=== PATIENT | female | born 2000 | race African-American/Black ===

== ENCOUNTER 2022-08-26 17:13 | Emergency (ER) | payer MEDICAID, OTHER ==
[~2022-08-26] VITALS: Ht 160 cm; Wt 54.0 kg
[2022-08-26 17:13] VITALS: BP 138/86
[~2022-08-26 17:13] MED LIST: IBUP-1780 PO
[2022-08-26 18:09] LABS: BASOPHILS % (AUTO) 0 % (0-10); EOSINOPHILS % (AUTO) 0 % (0-10); HEMATOCRIT 39 % (35-52); HEMOGLOBIN 13.5 g/dL (11.5-16.0); LYMPHOCYTES % (AUTO) 15 % (12-44); MEAN CORPUSCULAR HEMOGLOBIN 31 pg (25-34); MEAN CORPUSCULAR HGB CONC 35 g/dL (32-36); MEAN CORPUSCULAR VOLUME 89 fL (80-99); MEAN PLATELET VOLUME 8.9 fL (9.0-12.2); MONOCYTES # (AUTO) 0.9 10^3/uL (0.0-1.0); MONOCYTES % (AUTO) 7 % (0-12); NEUTROPHILS # (AUTO) 10.4 10^3/uL (1.8-7.8); NEUTROPHILS % (AUTO) 77 % (42-75); PLATELET COUNT 404 10^3/uL (130-400); WHITE BLOOD COUNT 13.4 10^3/uL (4.3-11.0)
--- NOTE | 2022-08-26 18:15 | ED Psychosocial ---
General Chief Complaint: Psych/Social Disorder Stated Complaint: AMS History of Present Illness Date Seen by Provider: August 26, 2022 Time Seen by Provider: 17:22 Initial Comments Alba Bhatt presents via [facility] from [facility] for concerns that someone would hurt her or she would hurt herself. She will not state her name and says she goes by many names. She reports her birthday is in [birth year] but unsure if born in 1998, 1999, or 2000. She reports auditory hallucinations. She is drawing and writing on paper with locations noted in many states. She reports voices telling her to machine milker traffic, to kill herself. She has various scratches to her arms and legs, reports cutting in the past. No active bleeding or acute injuries. EMS contacted [address] [place] [address] to have her screened and they refused. Timing/Duration: getting worse Associated Symptoms: suicidal ideation (KRISTIAN AGARWAL) Allergies and Home Medications Allergies Coded Allergies: No Allergy Information Available (Unverified , 08/26/22) patient is not answering all questions Patient Home Medication List Home Medication List Reviewed: Yes (KRISTIAN AGARWAL) Review of Systems Constitutional: no symptoms reported, see HPI : No (neg Urine HCG) Psychiatric/Neurological: See HPI, Anxiety, Depressed, Emotional Problems (KRISTIAN GARG) All Other Systems Reviewed Negative Unless Noted: Yes (KRISTIAN AGARWAL) Past Suturff-Rnzewo-Bfkamk Hx Family Medical History Reviewed Nursing Family Hx (KRISTIAN AGARWAL) Physical Exam Vital Signs - First Documented 08/26/22 17:13 Temp 36.8 Pulse 145 Resp 16 B/P (MAP) 138/86 (103) Pulse Ox 98 O2 Delivery Room Air (LOR,KAPIL K DO) Capillary Refill : (KRISTIAN AGARWAL) Height, Weight, BMI Height: '" Weight: lbs. oz. kg; BMI Method: General Appearance: WD/WN, mild distress HEENT: PERRL/EOMI, normal ENT inspection, TMs normal, pharynx normal Neck: non-tender, full range of motion, supple, normal inspection Respiratory: chest non-tender, lungs clear, normal breath sounds Cardiovascular: normal peripheral pulses, regular rate, rhythm Gastrointestinal: normal bowel sounds, non tender, soft Extremities: normal range of motion, non-tender, no pedal edema, no calf tenderness Neurologic/Psychiatric: no motor/sensory deficits, alert; No normal mood/affect, No oriented x 3 Appearance/Memory: appropriate appearance, denies illness, disheveled, impaired insight, impaired recent memory, impaired remote memory Behavior/Eye Contact: cooperative (agreeable to have exam and labs. ), refused to answer (name or ) Thoughts/Hallucinations: auditory hallucinations, flight of ideas Skin: normal color, warm/dry, other (healed scratches and cuts to legs and arms. No acute skin injuries or skin changes compatible to IV drug injections. ) (KRISTIAN AGARWAL) Progress/Results/Core Measures Results/Orders Lab Results Laboratory Tests Test 08/26/22 18:00 08/26/22 18:55 Range/Units White Blood Count 13.4 H 4.3-11.0 10^3/uL Red Blood Count 4.36 3.80-5.11 10^6/uL Hemoglobin 13.5 11.5-16.0 g/dL Hematocrit 39 35-52 % Mean Corpuscular Volume 89 80-99 fL Mean Corpuscular Hemoglobin 31 25-34 pg Mean Corpuscular Hemoglobin Concent 35 32-36 g/dL Red Cell Distribution Width 13.2 10.0-14.5 % Platelet Count 404 H 130-400 10^3/uL Mean Platelet Volume 8.9 L 9.0-12.2 fL Immature Granulocyte % (Auto) 0 % Neutrophils (%) (Auto) 77 H 42-75 % Lymphocytes (%) (Auto) 15 12-44 % Monocytes (%) (Auto) 7 0-12 % Eosinophils (%) (Auto) 0 0-10 % Basophils (%) (Auto) 0 0-10 % Neutrophils # (Auto) 10.4 H 1.8-7.8 10^3/uL Lymphocytes # (Auto) 2.0 1.0-4.0 10^3/uL Monocytes # (Auto) 0.9 0.0-1.0 10^3/uL Eosinophils # (Auto) 0.0 0.0-0.3 10^3/uL Basophils # (Auto) 0.0 0.0-0.1 10^3/uL Immature Granulocyte # (Auto) 0.1 0.0-0.1 10^3/uL Sodium Level 140 135-145 MMOL/L Potassium Level 3.7 3.6-5.0 MMOL/L Chloride Level 106 98-107 MMOL/L Carbon Dioxide Level 17 L 21-32 MMOL/L Anion Gap 17 H 5-14 MMOL/L Blood Urea Nitrogen 8 7-18 MG/DL Creatinine 0.89 0.60-1.30 MG/DL Estimat Glomerular Filtration Rate 50 BUN/Creatinine Ratio 9 Glucose Level 93 70-105 MG/DL Calcium Level 10.2 H 8.5-10.1 MG/DL Corrected Calcium 8.5-10.1 MG/DL Total Bilirubin 0.8 0.1-1.0 MG/DL Aspartate Amino Transf (AST/SGOT) 32 5-34 U/L Alanine Aminotransferase (ALT/SGPT) 19 0-55 U/L Alkaline Phosphatase 72 40-136 U/L Total Protein 8.7 H 6.4-8.2 GM/DL Albumin 4.9 H 3.2-4.5 GM/DL TSH [place] Testing 0.56 0.35-4.94 UIU/ML Salicylates Level < 5.0 L 5.0-20.0 MG/DL Acetaminophen Level < 10 L 10-30 UG/ML Serum Alcohol < 10 <10 MG/DL Urine Color YELLOW Urine Clarity CLEAR Urine pH 7.5 5-9 Urine Specific [place] 1.020 1.016-1.022 Urine Protein 2+ H NEGATIVE Urine Glucose (UA) NEGATIVE NEGATIVE Urine Ketones 2+ H NEGATIVE Urine Nitrite NEGATIVE NEGATIVE Urine Bilirubin 1+ H NEGATIVE Urine Urobilinogen 1.0 < = 1.0 MG/DL Urine Leukocyte Esterase NEGATIVE NEGATIVE Urine RBC (Auto) NEGATIVE NEGATIVE Urine RBC RARE /HPF Urine WBC 0-2 /HPF Urine Squamous Epithelial Cells 2-5 /HPF Urine Crystals NONE /LPF Urine Bacteria LARGE H /HPF Urine Casts PRESENT /LPF Urine Hyaline Casts 5-10 H /LPF Urine Mucus LARGE H /LPF Urine Culture Indicated YES Urine Opiates Screen NEGATIVE NEGATIVE Urine Oxycodone Screen NEGATIVE NEGATIVE Urine Methadone Screen NEGATIVE NEGATIVE Urine Propoxyphene Screen NEGATIVE NEGATIVE Urine Barbiturates Screen NEGATIVE NEGATIVE Ur Tricyclic Antidepressants Screen NEGATIVE NEGATIVE Urine Phencyclidine Screen NEGATIVE NEGATIVE Urine Amphetamines Screen POSITIVE H NEGATIVE Urine Methamphetamines Screen POSITIVE H NEGATIVE Urine Benzodiazepines Screen NEGATIVE NEGATIVE Urine Cocaine Screen NEGATIVE NEGATIVE Urine Cannabinoids Screen POSITIVE H NEGATIVE (LOR,KAPIL K DO) My Orders Orders - LORKAPIL K DO Nitrofurantoin Capsule,Macro (Macrobid C (08/27/22 09:00) (KAPIL MADRID DO) Medications Given in ED Current Medications Medications Dose Ordered Sig/Haresh Route Start Time Stop Time Status Last Admin Dose Admin Ondansetron HCl 4 mg PRN PRN SL 08/26/22 22:30 08/26/22 22:57 4 MG (KAPIL MADRID DO) Vital Signs/I&O (KAPIL MADRID DO) Progress Progress Note : Time: 17:22 Progress Note Patient assessed and agreeable to remain in the emergency department for a sc reening and labs. She continues to refuse to state her name or date of . She denies having any family or friends to call for assistance. No past medical history could be obtained. She continues to report auditory hallucinations. Taking water, no complaints. 1814 labs completed, awaiting urine. Patient drinking water. 1899 UA obtained, urine positive for marijuana and feta means and methamphetamines. [facility] Sitter provided to stay with patient. 1929 patient continuously wants to wash her arms and legs in the sink, states she is filthy. Provided bath basin and towels. Patient has been drinking water and pedialyte. She is refusing IV. 1999 patient found sitting on counter with legs in sink, bathing. Sitter in room. Notified sitter that patient cannot sit on counter. She was assisted to chair and instructed that she can't be on counters, she could fall or be injured. 2014 patient provided meal tray. No return call from [facility]. 2099 [facility] called, unsure if they can screen her since they don't know her name. They will discuss with supervisor cloth winding. 2129 patient playing hang man with sitter, wrote [employer] on the board. States that is her name, but she is unsure of her birthdate. Attempted to locate a [place] and that name is not in [employer]. Law Enforcement contacted and they do not have any matches for [employer]. 2199 Continue to await [facility] for mental health screen. Report provided to Dr. Madrid, to assume care of patient. (KRISTIAN AGARWAL) Progress Note : Progress Note 2199--ASSUMED CARE OF PT AT END OF SHIFT. MENTAL HEALTH SCREEN IS STILL PENDING AT THIS TIME. PT IS RELATIVELY CALM AND COOPERATIVE AT THIS TIME. ELICIATER ( RN ) IS IN ROOM WITH PT. ( SECURE ROOM IS CURRENTLY IN USE BY ANOTHER MENTAL HEALTH PATIENT ) MIDNIGHT--MENTAL HEALTH SCREEN IS BEING DONE 0024--PT HAS HAD A MENTAL HEALTH SCREEN, AND HAVE BEEN INFORMED THAT THEY WILL BE DOING AN INVOLUNTARY ADMIT TO [facility]. PT IS GOING THROUGH CABINETS, MESSING WITH EQUIPMENT IN ROOM, REPEATEDLY USING CLEANING WIPES, REPEATEDLY TAKING OUT GLOVES, ETC. 0115--PT REQUESTING "MOTRIN 800 MG" FOR BACK PAIN--I ADVISED PT THAT I COULD NOT ORDER ANY MEDICATIONS WITHOUT HER REAL NAME AND DATE, AND PT IMMEDIATELY STATES "I'LL WAIT THEN" AND REFUSES TO PROVIDE ANY OF HER INFORMATION. 0130--PT IS RAPIDLY ESCALATING, BECOMING VERBALLY AND PHYSICALLY AGGRESSIVE, LEAVING THE ROOM, WANTING TO LEAVE. [employer] WERE CALLED FOR ASSISTANCE. SHE CONTINUES TO REFUSE TO GIVE HER NAME OR DATE OF . 0140--[employer] ARE HERE. 0245--PT HAS NOW GIVEN A NAME AND DATE OF TO POLICE, BUT THERE IS NO PHOTO VERIFICATION THAT THE PATIENT IS ACTUALLY THIS PERSON. [employer] HAVE NOW LEFT, AND PT IS NO LONGER AGGRESSIVE OR TRYING TO LEAVE. 0400--PT IS NOW SLEEPING 0600--CARE TURNED OVER TO DR. BYRD, PENDING [facility] AD[facility]. PT IS SLEEPING AT THIS TIME. (KAPIL MADRID DO) Progress Note : Time: 12:22 Progress Note 08/27/22 Notified by Alexandria Ramos of [facility] that patient has been accepted to [facility] for tomorrow (TRACEY BYRD MD) Initial ECG Impression Date: August 26, 2022 Initial ECG Impression Time: 18:43 Initial ECG Rate: 115 Initial ECG Rhythm: S.Tach Initial ECG Intervals: Normal Initial ECG Intervals [place] 159, QRS D 74, QT 320, QTc 388. Margie P71, R57, T50. Initial ECG Impression: Normal Initial ECG Comparisson: No Previous ECG Available (KRISTIAN AGARWAL) Transfer of Care Time: 22:00 Care transferred to: Dr. Madrid (KRISTIAN AGARWAL) Departure Impression Primary Impression: Auditory hallucinations Additional Impressions: Suicidal ideations Drug abuse, amphetamine type Drug abuse, marijuana Disposition: 65 XFER TO PSYCH HOSP/UNIT Condition: Stable Transfer Transfer Reason: Exceeds level of care Time Spoke to Accepting Phy: 12:25 Transfer Progress Notes discussed with [facility] by RAUL Pearl for [employer]ONTLOAD DRIVER Transfer Facility: [facility] Method of Transfer: Private Vehicle (TRACEY BYRD MD) Departure-Patient Inst. Referrals: NO,LOCAL PHYSICIAN (PCP/Family) Primary Care Physician KRISTIAN AGARWAL August 26, 2022 18:15 KAPIL MADRID DO August 26, 2022 22:30 TRACEY BYRD MD August 27, 2022 12:26
[2022-08-26 18:25] LABS: ALBUMIN 4.9 GM/DL (3.2-4.5); CHLORIDE 106 MMOL/L (98-107); POTASSIUM 3.7 MMOL/L (3.6-5.0); SODIUM 140 MMOL/L (135-145)
[2022-08-26 18:26] LABS: CALCIUM 10.2 MG/DL (8.5-10.1)
[2022-08-26 18:27] LABS: GLUCOSE 93 MG/DL (70-105); TOTAL PROTEIN 8.7 GM/DL (6.4-8.2)
[2022-08-26 18:28] LABS: CARBON DIOXIDE 17 MMOL/L (21-32)
[2022-08-26 18:29] LABS: BILIRUBIN,TOTAL 0.8 MG/DL (0.1-1.0)
[2022-08-26 18:31] LABS: ALKALINE PHOSPHATASE 72 U/L (40-136); CREATININE SERUM 0.89 MG/DL (0.60-1.30); GFR ESTIMATED 50
[2022-08-26 18:33] LABS: ACETAMINOPHEN < 10 UG/ML (10-30); BUN/CREATININE RATIO 9
[2022-08-26 18:34] LABS: ALANINE AMINOTRANSFERASE 19 U/L (0-55); SALICYLATE < 5.0 MG/DL (5.0-20.0)
[2022-08-26 19:03] LABS: CLARITY,URINE CLEAR; COLOR,URINE YELLOW; GLUCOSE, URINE (UA) NEGATIVE (NEGATIVE); KETONES,URINE 2+ (NEGATIVE); LEUKOCYTE ESTERASE ,URINE NEGATIVE (NEGATIVE); NITRITE,URINE NEGATIVE (NEGATIVE); PH,URINE 7.5 (5-9); PROTEIN,URINE 2+ (NEGATIVE)
[2022-08-26 19:15] LABS: RBC,URINE RARE /HPF
[2022-08-26 19:16] LABS: BACTERIA,URINE LARGE /HPF; WBC,URINE 0-2 /HPF
[2022-08-26 19:17] LABS: AMPHETAMINE SCREEN, URINE POSITIVE (NEGATIVE); BARBITURATE SCREEN URINE NEGATIVE (NEGATIVE); BENZODIAZEPINES SCREEN URINE NEGATIVE (NEGATIVE); CANNABINOID SCREEN, URINE POSITIVE (NEGATIVE); COCAINE SCREEN URINE NEGATIVE (NEGATIVE); METHADONE STAT NEGATIVE (NEGATIVE); OPIATE SCREEN URINE NEGATIVE (NEGATIVE); OXYCODONE STAT NEGATIVE (NEGATIVE); PROPOXYPHENE STAT NEGATIVE (NEGATIVE); TRICYCLIC ANTIDEPRESSANTS SCRE NEGATIVE (NEGATIVE)
[2022-08-26] MEDS ORDERED: NITROFURANTOIN 100 MG (MACROBID) CAPSULE PO STA (21:07)
[2022-08-26 21:32] LABS: BILIRUBIN,URINE 1+ (NEGATIVE)
[2022-08-26] MEDS ORDERED: ONDANSETRON 4 MG (ZOFRAN) ORAL DISSOLVE TAB SL PRN (22:30)
[2022-08-27] MEDS ORDERED: NITROFURANTOIN 100 MG (MACROBID) CAPSULE PO SCH (09:00)
[2022-08-27] MEDS ORDERED: OLANZapine 5 MG ODT (ZyPREXA ZYDIS) PO ONE (12:00)
== END 2022-08-27 14:59 ==
LOC: ER 17:18 → EDBD 17:18 → ER 08-27 14:59
DX: R44.0 Auditory hallucinations (principal); R45.851 Suicidal ideations; F15.10 Other stimulant abuse, uncomplicated; F12.10 Cannabis abuse, uncomplicated
CPT/HCPCS: 80053; 80306; 81000; 84443; 84703; 85025; 87088; 99283; G0480 ×3; 36415; 80320; 80329; 93005

== ENCOUNTER 2023-02-24 09:03 | Emergency (ER) | payer MEDICAID ==
[~2023-02-24] VITALS: Ht 160 cm; Wt 63.5 kg
[~2023-02-24 09:03] MED LIST changes: +ONDA4TAB11 SL
[2023-02-24] MEDS ORDERED: OLANZapine 5 MG ODT TABLET SL ONE (09:15)
[2023-02-24 09:25] LABS: BILIRUBIN,URINE NEGATIVE (NEGATIVE); CLARITY,URINE CLEAR; COLOR,URINE YELLOW; GLUCOSE, URINE (UA) NEGATIVE (NEGATIVE); KETONES,URINE 1+ (NEGATIVE); LEUKOCYTE ESTERASE ,URINE NEGATIVE (NEGATIVE); NITRITE,URINE NEGATIVE (NEGATIVE); PROTEIN,URINE NEGATIVE (NEGATIVE)
[2023-02-24 09:26] LABS: BACTERIA,URINE TRACE /HPF; WBC,URINE 0-2 /HPF
[2023-02-24 09:30] LABS: AMPHETAMINE SCREEN, URINE POSITIVE (NEGATIVE); BARBITURATE SCREEN URINE NEGATIVE (NEGATIVE); CANNABINOID SCREEN, URINE POSITIVE (NEGATIVE); COCAINE SCREEN URINE NEGATIVE (NEGATIVE); METHADONE STAT NEGATIVE (NEGATIVE); OPIATE SCREEN URINE NEGATIVE (NEGATIVE); OXYCODONE STAT NEGATIVE (NEGATIVE); TRICYCLIC ANTIDEPRESSANTS SCRE NEGATIVE (NEGATIVE)
[2023-02-24] MEDS ORDERED: ONDANSETRON 4 MG ORAL DISSOLVE TABLET SL ONE (09:30)
--- NOTE | 2023-02-24 09:39 | ED Psychosocial ---
General Chief Complaint: Psych/Social Disorder Stated Complaint: PSYCH Nursing Triage Note: PT AMB TO RM 8. PT BROUGHT IN BY [facility] FOR HALLUCINATION, WALKING INTO TRAFFIC. [facility] WAS CONTACTED FOR PT BANGING ON SOMEONES DOOR ASKING FOR HELP. Source: patient, police, other ([facility]) Exam Limitations: no limitations (JUVENTINO PORTILLO MD) History of Present Illness Date Seen by Provider: Feb 24, 2023 Time Seen by Provider: 09:05 Initial Comments This 22-year-old young lady presents to the emergency room escorted by police jennifer Ramos from [facility] for reasons of psychosis. She needs medical clearance for psychiatric placement. She has been very paranoid with active hallucinations today. She reported to police and mental health staff that she was hearing voices telling her to . She has paranoia is that the city is being bombed and she needs to escape. She insisted that the police had guns drawn and were going to shoot her, but police never had guns drawn. She was running from police and into the road. She reported the EMS staff were "fake" and that they were trying to sell her into slavery. She believes the whole world has "exploded" with windows and doors blown out on all the buildings. She is concerned this will happen again. She reports to me that her "anxiety is through the roof." She does not reportedly take any antipsychotics or mood stabilizers at this time. She does take buspirone venlafaxine, and hydroxyzine. She has not taken any of them today. She has a history of polysubstance abuse and admits to using alcohol, methamphetamine, and marijuana. She reportedly drank alcohol last night. She does not appear intoxicated at this time. She reportedly has placement pending at a treatment facility in [place], [place]. Mental health staff believe that she needs more prompt intervention as she may pose a risk to herself with psychosis and lack of discernment with potentially dangerous activities such as running out into traffic. Physically she complains of generalized pain. She reports a sore left wrist and left ankle with no apparent injury. She has had some mild sore throat. She reports the sore throat is typical for her in cold weather. She is afebrile. She reports being a little nauseated. Patient reports having [facility] diagnoses of depression, bipolar, borderline personality, psychosis, polysubstance abuse, and self cutting behavior. She denies being suicidal or homicidal right now. (JUVENTINO PORTILLO MD) Allergies and Home Medications Allergies Coded Allergies: No Allergy Information Available (Unverified , 08/26/22) patient is not answering all questions No Known Drug Allergies (Unverified , 08/28/22) Patient Home Medication List Home Medication List Reviewed: Yes (JUVENTINO PORTILLO MD) Ibuprofen (Ibuprofen) 800 Mg Tablet, 800 MG PO Q8H PRN for PAIN Prescribed by: JAMES JUSTICE on 07/28/182157 Ondansetron (Ondansetron Odt) 4 Mg Tab.rapdis, 4 MG SL Q4H PRN for NAUSEA/VOMITING Prescribed by: ZHANE VILLELA on 11/11/22 2218 Review of Systems Constitutional: see HPI EENTM: see HPI Respiratory: no symptoms reported Cardiovascular: no symptoms reported Genitourinary: see HPI : No Musculoskeletal: see HPI Skin: no symptoms reported Psychiatric/Neurological: See HPI (JUVENTINO PORTILLO MD) Past Ujtrcop-Qazvqb-Blisjg Hx Patient Social History Tobacco Use?: Yes Tobacco type used: Cigarettes Smoking Status: Current Everyday Smoker Use of E-Cig and/or Vaping dev: No Substance use?: Yes Substance type: Methamphetamine, Marijuana Alcohol Use?: Yes Alcohol Frequency: Once in a while Pt feels they are or have been: No (JUVENTINO PORTILLO MD) Immunizations Up To Date First/Initial COVID19 Vaccinat: UNK Second COVID19 Vaccination [place]: UNK Third COVID19 Vaccination Date: UNK (JUVENTINO PORTILLO MD) Seasonal Allergies Seasonal Allergies: No (JUVENTINO PORTILLO MD) Past Medical History Surgery/Hospitalization HX: Depression and Anxiety Surgeries: No Respiratory: No Cardiac: No Neurological: No Genitourinary: No Gastrointestinal: No Musculoskeletal: No Endocrine: No HEENT: No Cancer: No Psychosocial: Yes Integumentary: No Blood Disorders: No (JUVENTINO PORTILLO MD) Physical Exam Vital Signs - First Documented 02/24/23 09:03 Temp 36.0 Pulse 134 Resp 22 B/P (MAP) 152/100 (117) Pulse Ox 99 O2 Delivery Room Air (LORKAPIL Edward DO) Capillary Refill : (JUVENTINO PORTILLO MD) Height, Weight, BMI Height: 5'2.00" Weight: 165lbs. oz. [id number]; 24.00 BMI Method:Stated General Appearance: WD/WN, mild distress (Moderately anxious) HEENT: PERRL/EOMI, normal ENT inspection, other (Enlarged tonsils) Neck: normal inspection Respiratory: lungs clear, normal breath sounds, no respiratory distress Cardiovascular: no edema, no murmur, tachycardia Gastrointestinal: non tender, soft; No distended Extremities: non-tender, normal inspection, no pedal edema Neurologic/Psychiatric: no motor/sensory deficits, alert, oriented x 3, other (Mild tremor, anxious) Appearance/Memory: disheveled, other (Some insight into her paranoia) Behavior/Eye Contact: cooperative, good eye contact Thoughts/Hallucinations: auditory hallucinations, paranoid Skin: normal color, warm/dry, other (Old scars on the upper extremities from self cutting) (JUVENTINO PORTILLO MD) Progress/Results/Core Measures Results/Orders Lab Results Laboratory Tests Test 02/24/23 09:10 02/24/23 09:14 02/24/23 09:37 02/24/23 09:51 Range/Units Urine Color YELLOW Urine Clarity CLEAR Urine pH 7.0 5-9 Urine Specific [place] 1.020 1.016-1.022 Urine Protein NEGATIVE NEGATIVE Urine Glucose (UA) NEGATIVE NEGATIVE Urine Ketones 1+ H NEGATIVE Urine Nitrite NEGATIVE NEGATIVE Urine Bilirubin NEGATIVE NEGATIVE Urine Urobilinogen 0.2 < = 1.0 MG/DL Urine Leukocyte Esterase NEGATIVE NEGATIVE Urine RBC (Auto) NEGATIVE NEGATIVE Urine RBC NONE /HPF Urine WBC 0-2 /HPF Urine Squamous Epithelial Cells 2-5 /HPF Urine Crystals NONE /LPF Urine Bacteria TRACE /HPF Urine Casts NONE /LPF Urine Mucus NEGATIVE /LPF Urine Culture Indicated NO Urine Opiates Screen NEGATIVE NEGATIVE Urine Oxycodone Screen NEGATIVE NEGATIVE Urine Methadone Screen NEGATIVE NEGATIVE Urine Barbiturates Screen NEGATIVE NEGATIVE Ur Tricyclic Antidepressants Screen NEGATIVE NEGATIVE Urine Phencyclidine Screen NEGATIVE NEGATIVE Urine Amphetamines Screen POSITIVE H NEGATIVE Urine Methamphetamines Screen POSITIVE H NEGATIVE Urine Benzodiazepines Screen NEGATIVE NEGATIVE Urine Cocaine Screen NEGATIVE NEGATIVE Urine Cannabinoids Screen POSITIVE H NEGATIVE Influenza Type A (RT-PCR) Not Detected Not Detecte Influenza Type B (RT-PCR) Not Detected Not Detecte SARS-CoV-2 RNA (RT-PCR) Not Detected Not Detecte Group A Streptococcus Screen Detected H NotDetected White Blood Count 11.9 H 4.3-11.0 10^3/uL Red Blood Count 4.03 3.80-5.11 10^6/uL Hemoglobin 12.4 11.5-16.0 g/dL Hematocrit 37 35-52 % Mean Corpuscular Volume 92 80-99 fL Mean Corpuscular Hemoglobin 31 25-34 pg Mean Corpuscular Hemoglobin Concent 33 32-36 g/dL Red Cell Distribution Width 13.0 10.0-14.5 % Platelet Count 338 130-400 10^3/uL Mean Platelet Volume 8.8 L 9.0-12.2 fL Immature Granulocyte % (Auto) 0 % Neutrophils (%) (Auto) 82 H 42-75 % Lymphocytes (%) (Auto) 13 12-44 % Monocytes (%) (Auto) 4 0-12 % Eosinophils (%) (Auto) 0 0-10 % Basophils (%) (Auto) 0 0-10 % Neutrophils # (Auto) 9.8 H 1.8-7.8 10^3/uL Lymphocytes # (Auto) 1.5 1.0-4.0 10^3/uL Monocytes # (Auto) 0.5 0.0-1.0 10^3/uL Eosinophils # (Auto) 0.0 0.0-0.3 10^3/uL Basophils # (Auto) 0.0 0.0-0.1 10^3/uL Immature Granulocyte # (Auto) 0.0 0.0-0.1 10^3/uL Sodium Level 136 135-145 MMOL/L Potassium Level 3.8 3.6-5.0 MMOL/L Chloride Level 102 98-107 MMOL/L Carbon Dioxide Level 21 21-32 MMOL/L Anion Gap 13 5-14 MMOL/L Blood Urea Nitrogen 10 7-18 MG/DL Creatinine 0.82 0.60-1.30 MG/DL Estimat Glomerular Filtration Rate 105 BUN/Creatinine Ratio 12 Glucose Level 90 70-105 MG/DL Calcium Level 9.6 8.5-10.1 MG/DL Corrected Calcium 9.3 8.5-10.1 MG/DL Total Bilirubin < 0.1 L 0.1-1.0 MG/DL Aspartate Amino Transf (AST/SGOT) 22 5-34 U/L Alanine Aminotransferase (ALT/SGPT) 18 0-55 U/L Alkaline Phosphatase 102 40-136 U/L Total Creatine Kinase 161 29-168 U/L Total Protein 8.4 H 6.4-8.2 GM/DL Albumin 4.4 3.2-4.5 GM/DL TSH [place] Testing 0.49 0.35-4.94 UIU/ML Serum Test, Qualitative NEGATIVE NEGATIVE Salicylates Level < 5.0 L 5.0-20.0 MG/DL Acetaminophen Level < 10 L 10-30 UG/ML Serum Alcohol < 10 <10 MG/DL (LOR,KAPIL Edward MORRIS) Vital Signs/I&O 02/25/23 06:30 Pulse 61 Resp 14 B/P (MAP) 105/64 (78) Pulse Ox 99 O2 Delivery Room Air (LORKAPIL Edward MORRIS) Blood Pressure Mean: 117 Progress Progress Note #1: Time: 09:44 Progress Note Patient is being medically screened. She is anxious and paranoid at this time. She excepted Zyprexa 5 mg sublingually. We will monitor her response to the medication including her heart rate. In the meantime, labs are being assessed. Urine drug screen did return positive for marijuana, methamphetamine, and amphetamine. Zofran was given for nausea. COVID, influenza, and rapid strep screen are pending. Progress Note #2: Time: 10:48 Progress Note Labs have been obtained, reviewed, and interpreted by me. CBC was notable only for slight leukocytosis of 11.9. Patient does have strep throat, recent methamphetamine use, and may be mildly hypovolemic leading to this slight leukocytosis. She is presently orally hydrating. CBC was otherwise unremarkable. CMP was unremarkable. Creatinine kinase was normal at 161. TSH was also normal. Urinalysis was notable only for 1+ ketones. Again, this would suggest some mild hypovolemia. Influenza and COVID-19 swabs were negative. Rapid strep test was positive. Toxicology screen was positive for methamphetamine, amphetamine, and marijuana. Serum tests for Tylenol, salicylate, and alcohol were negative. Patient was reassessed and found to have an improved heart rate at 119 at present. Her tachycardia is likely multifactorial due to recent methamphetamine use, strep throat, and mild hypovolemia. I expect this to gradually improve over time. Serum test was negative. Patient is medically cleared for psychiatric placement. Amoxicillin was given for initial treatment of strep throat. Patient is feeling some relief of her mental health symptoms after receiving Zyprexa 5 mg sublingual and hydroxyzine 25 mg orally. (JUVENTINO PORTILLO MD) Progress Note : Progress Note 1800--ASSUMED CARE OF PT FROM DR. PORTILLO, PT IS RESTING QUIETLY AT THIS TIME. PT REMAINS 1:1 OBSERVATION HAVE BEEN INFORMED THAT PT HAS BEEN ACCEPTED AT [facility], AND PT IS TO BE TAKEN THERE BY LAW ENFORCEMENT TOMORROW MORNING 0600--CARE TURNED OVER TO DR. MEDRANO, PAPERWORK FROM MENTAL HEALTH, WELL ACCEPTING PHYSICIAN, IS PENDING AT THIS TIME (KAPIL HOROWITZ DO) Departure Impression Primary Impression: Auditory hallucinations Additional Impressions: Paranoia Polysubstance abuse Strep throat Disposition: 65 XFER TO PSYCH HOSP/UNIT Condition: Improved Transfer BH Medically Cleared for Xfer: Yes Transfer Reason: Exceeds level of care (JUVENTINO PORTILLO MD) Transfer Facility: [facility] Method of Transfer: Law Enforcement (KAPIL HOROWITZ DO) Departure-Patient Inst. Referrals: NO,LOCAL PHYSICIAN (PCP/Family) Primary Care Physician JUVENTINO PORTILLO MD Feb 24, 2023 09:39 KAPIL HOROWITZ DO Feb 24, 2023 22:33
[2023-02-24 09:59] LABS: BASOPHILS % (AUTO) 0 % (0-10); EOSINOPHILS % (AUTO) 0 % (0-10); HEMATOCRIT 37 % (35-52); HEMOGLOBIN 12.4 g/dL (11.5-16.0); LYMPHOCYTES # (AUTO) 1.5 10^3/uL (1.0-4.0); LYMPHOCYTES % (AUTO) 13 % (12-44); MEAN CORPUSCULAR HEMOGLOBIN 31 pg (25-34); MEAN CORPUSCULAR HGB CONC 33 g/dL (32-36); MEAN CORPUSCULAR VOLUME 92 fL (80-99); MEAN PLATELET VOLUME 8.8 fL (9.0-12.2); MONOCYTES # (AUTO) 0.5 10^3/uL (0.0-1.0); MONOCYTES % (AUTO) 4 % (0-12); NEUTROPHILS # (AUTO) 9.8 10^3/uL (1.8-7.8); NEUTROPHILS % (AUTO) 82 % (42-75); PLATELET COUNT 338 10^3/uL (130-400); WHITE BLOOD COUNT 11.9 10^3/uL (4.3-11.0)
[2023-02-24 10:08] LABS: CHLORIDE 102 MMOL/L (98-107); POTASSIUM 3.8 MMOL/L (3.6-5.0); SODIUM 136 MMOL/L (135-145)
[2023-02-24 10:09] LABS: ALBUMIN 4.4 GM/DL (3.2-4.5)
[2023-02-24 10:10] LABS: CALCIUM 9.6 MG/DL (8.5-10.1)
[2023-02-24 10:11] LABS: GLUCOSE 90 MG/DL (70-105); TOTAL PROTEIN 8.4 GM/DL (6.4-8.2)
[2023-02-24 10:12] LABS: CARBON DIOXIDE 21 MMOL/L (21-32)
[2023-02-24 10:13] LABS: BILIRUBIN,TOTAL < 0.1 MG/DL (0.1-1.0)
[2023-02-24 10:15] LABS: ALKALINE PHOSPHATASE 102 U/L (40-136); CREATININE SERUM 0.82 MG/DL (0.60-1.30); GFR ESTIMATED 105
[2023-02-24 10:16] LABS: BUN/CREATININE RATIO 12
[2023-02-24 10:18] LABS: ALANINE AMINOTRANSFERASE 18 U/L (0-55); CREATINE KINASE 161 U/L (29-168); SALICYLATE < 5.0 MG/DL (5.0-20.0)
[2023-02-24 10:21] LABS: ACETAMINOPHEN < 10 UG/ML (10-30)
[2023-02-24 10:38] LABS: TSH (THYROID ANALYZER) 0.49 UIU/ML (0.35-4.94)
[2023-02-24] MEDS: hydrOXYzine 25 MG CAPSULE PO STA ×2 (12:17→16:38)
[2023-02-24] MEDS: AMOXICILLIN 500 MG CAPSULE PO STA ×2 (12:17→16:38)
[2023-02-24] MEDS ORDERED: AMOXICILLIN 500 MG CAPSULE PO SCH (21:00)
[2023-02-25 07:05] VITALS: BP 105/64
== END 2023-02-25 07:05 ==
LOC: EDUNIT# 09:03 → ER 09:03
DX: F22 Delusional disorders (principal); J02.0 Streptococcal pharyngitis; F19.10 Other psychoactive substance abuse, uncomplicated; R11.0 Nausea; F17.210 Nicotine dependence, cigarettes, uncomplicated; T43.596A Underdosing of other antipsychotics and neuroleptics, initial encounter; T43.216A Underdosing of selective serotonin and norepinephrine reuptake inhibitors, initial encounter; Z91.128 Patient's intentional underdosing of medication regimen for other reason
CPT/HCPCS: 80053; 80306; 81000; 82550; 84443; 84703; 85025; 87430; 87636; 99283; G0480 ×3; 36415; 80320; 80329